=== PATIENT | female | born 1950 | race Caucasian/White ===

== ENCOUNTER 2019-11-02 02:10 | Inpatient (IN) ==
--- NOTE | 2019-10-27 10:28 | EKG Report ---
Test Performed on : 10/27/2019 10:25:28 AM Test Reason : PAT Blood Pressure : / mmHG Vent. Rate : 066 BPM Atrial Rate : 066 BPM P-R Int : 154 ms QRS Dur : 086 ms QT Int : 424 ms P-R-T Axes : 026 070 054 degrees QTc Int : 444 ms Normal sinus rhythm. Possible Inferior infarct , age undetermined Abnormal ECG No previous ECGs available Confirmed by Kilo MONCADA, Asa Gan ([id number]) on 10/31/2019 9:25:20 AM
[2019-10-27 10:40] LABS: BASO# 0.02 X1000 (0.0-0.2); BASO% 0.3 % (0.0-0.8); EOS# 0.17 X1000 (0.0-0.7); EOS% 2.9 % (0.0-10.0); HEMATOCRIT 42.9 % (37.0-47.0); HEMOGLOBIN 14.2 g/dL (12.0-16.0); IMM GRAN# 0.02 X1000 (0.0-0.04); IMM GRAN% 0.3 % (0.0-0.5); LYMPH# 1.53 X1000 (1.2-3.4); LYMPH% 25.7 % (20.5-51.1); MCH 29.9 PG (27-31); MCHC 33.1 g/dL (33-37); MCV 90.3 FL (81-99); MONO# 0.63 X1000 (0.11-0.59); MONO% 10.6 % (1.7-9.3); MPV 10.7 FL (7.4-10.4); NEUT# 3.59 X1000 (1.4-6.5); NEUT% 60.2 % (42.2-75.2); PLT 229 X1000 (130-400); RBC 4.75 XMIL (4.2-5.4); RDW 13.5 % (11.5-14.5); WBC 5.96 X1000 (4.8-10.8)
[2019-11-02] MEDS ORDERED: ENTEREG ONE (07:26)
[2019-11-02] MEDS ORDERED: LR 1,000 ML ONE (07:26)
[2019-11-02] MEDS ORDERED: MEFOXIN 2 GM/D5W 2 GM/50 ML IVPB ONE (07:27)
[2019-11-02] MEDS ORDERED: QUELICIN (DOSE) ONE (07:40)
[2019-11-02] MEDS ORDERED: ZEMURON ONE ×2 (07:40→09:52)
[2019-11-02] MEDS ORDERED: MARCAINE 0.25% ONE (07:41)
[2019-11-02] MEDS ORDERED: DIPRIVAN 1% ONE (07:41)
[2019-11-02] MEDS ORDERED: EXPAREL 1.3% ONE (07:41)
[2019-11-02] MEDS ORDERED: XYLOCAINE-MPF 2% ONE (07:41)
[2019-11-02] MEDS ORDERED: FENTANYL ONE (07:47)
[2019-11-02] MEDS ORDERED: ZOFRAN ONE (09:15)
[2019-11-02] MEDS ORDERED: DECADRON ONE (09:52)
[2019-11-02] MEDS ORDERED: OFIRMEV 1000 MG/ISOTONIC SOLN 1,000 MG/100 ML BOTTLE ONE (09:54)
[2019-11-02] MEDS ORDERED: ROBINUL ONE (10:09)
[2019-11-02] MEDS ORDERED: EPHEDRINE ONE (10:10)
[2019-11-02] MEDS ORDERED: BRIDION ONE (10:21)
[2019-11-02 10:29] LABS: URINE SOURCE CATH
[2019-11-02 10:31] LABS: BILIRUBIN URINE NEGATIVE (NEGATIVE); BLOOD URINE TRACE (NEGATIVE); COLOR YELLOW; GLUCOSE URINE NEGATIVE (NEGATIVE); KETONE URINE NEGATIVE (NEGATIVE); LEUKOCYTES URINE NEGATIVE (NEGATIVE); NITRITE URINE NEGATIVE (NEGATIVE); PROTEIN URINE TRACE mg/dL (NEGATIVE); TURBIDITY URINE CLEAR (CLEAR); UR EPITHELIAL CELLS <10 /HPF (<10); URINE BACTERIA NEGATIVE /HPF; URINE RBC <10 /HPF (<10); URINE WBC <10 /HPF (<10); UROBILINOGEN URINE NORMAL (NORMAL)
[2019-11-02] MEDS ORDERED: TORADOL ONE (11:07)
[2019-11-02] MEDS: DILAUDID ONE ×4 (11:50→12:11)
[2019-11-02] MEDS ORDERED: D5 1/2 NS + KCL 20 MEQ 1,000 ML ONE (11:51)
[2019-11-02] MEDS ORDERED: ZOFRAN IV PRN ×2 (12:56→14:03)
[2019-11-02] MEDS ORDERED: MEFOXIN 2 GM/NS 2 GM/50 ML IVPB IV SCH (14:00)
[2019-11-02] MEDS: D5 1/2 NS + KCL 20 MEQ 1,000 ML IV SCH (14:52)
[2019-11-02] MEDS: MEFOXIN 2 GM/D5W 2 GM/50 ML IVPB IV SCH ×2 (14:52→20:34)
[2019-11-02] MEDS: PROZAC PO SCH (15:51)
[2019-11-02] MEDS: OFIRMEV 1000 MG/ISOTONIC SOLN 1,000 MG/100 ML BOTTLE IV SCH ×2 (15:51→21:45)
--- NOTE | 2019-11-02 17:58 | OPERATIVE NOTE ---
PROCEDURE DATE: 11/02/2019 PREOPERATIVE DIAGNOSIS: Carcinoid tumor of the terminal ileum. POSTOPERATIVE DIAGNOSIS: Carcinoid tumor of the terminal ileum. PROCEDURE: Open right hemicolectomy with stapled [id number]-zy-dbla anastomosis. SURGEON: Dilshad Ta MD. CERAMIST: Dr. Ramon. Dr. Ramon assisted with the entirety of the case. His presence was crucial to completion of the case. ANESTHESIA: General endotracheal. FINDINGS: Lesion was palpable at the ileocecal valve. COMPLICATIONS: None at time of dictation. ESTIMATED BLOOD LOSS: 50 mL. SPECIMENS: Right colon. BRIEF HISTORY: A 69-year-old female with biopsy-proven carcinoid tumor. It was felt she needed a resection. She had an octreotide scan that showed no other lesions, it was felt she would benefit from resection. The risks, benefits, and alternatives were discussed. All questions were answered. Risks including, but not limited to bleeding, infection, risk of anesthesia, risk of anastomotic leak, risk of injuring other organs discussed. She voiced understanding. DESCRIPTION OF PROCEDURE: After informed consent was obtained, the patient brought to the operative theatre, transferred to the operating table. She was placed in the supine position. General endotracheal anesthesia was then performed without complication. Anesthesia then performed in a transabdominal plane block without complication. We then prepped and draped the abdomen in sterile fashion. After the time-out, we turned our attention to the abdomen. We made a standard midline incision through which we entered into the abdomen. Upon doing this, we were able to evaluate the right colon. I felt the lesion in the ileocecal valve and was able to mobilize the right colon, mobilize it along the white line of Toldt all the way up past the hepatic flexure. We made a window in the base of the mesentery of the terminal ileum 7 cm in vivo away from the ileocecal valve. I transected the terminal ileum there. We then found a spot in the transverse colon proximal to the middle colic artery, which we made a window and transected the colon there. We then took down the mesentery with the LigaSure. We then did a stapled side- to-side functional end-to-end anastomosis and over-sewed the common channel in 2 layers. We then closed the mesenteric defect. We then irrigated out the abdomen until the suction fluid was clear. We then closed the abdomen with a running loop PDS started on either side and closed the skin with pedro. The patient tolerated the procedure well, and was transferred back to recovery room. cc: Dilshad Ta MD
[2019-11-02] MEDS: HEPARIN SUBQ SCH (18:06)
[2019-11-02] MEDS: ULTRAM PO PRN (20:31)
[2019-11-02] MEDS: PERIDEX MT SCH (22:50)
[2019-11-03] MEDS: MORPHINE IV PRN ×5 (00:14→20:07)
[2019-11-03] MEDS: HEPARIN SUBQ SCH ×3 (03:11→18:41)
[2019-11-03] MEDS: ULTRAM PO PRN (03:11)
[2019-11-03] MEDS: MEFOXIN 2 GM/D5W 2 GM/50 ML IVPB IV SCH ×2 (03:11→10:39)
[2019-11-03] MEDS: OFIRMEV 1000 MG/ISOTONIC SOLN 1,000 MG/100 ML BOTTLE IV SCH ×2 (03:58→12:04)
[2019-11-03] MEDS: D5 1/2 NS + KCL 20 MEQ 1,000 ML IV SCH (03:58)
[2019-11-03] MEDS ORDERED: PROZAC PO SCH (09:00)
[2019-11-03] MEDS: VITAMIN B-12 SL SCH (10:41)
[2019-11-03] MEDS: BIOTIN PO SCH (10:41)
[2019-11-03] MEDS: LIPITOR PO SCH (10:42)
[2019-11-03] MEDS: NORVASC PO SCH (10:42)
[2019-11-03] MEDS: ENTEREG PO SCH ×2 (10:42→20:07)
[2019-11-03] MEDS: PERIDEX MT SCH ×2 (10:42→20:07)
--- NOTE | 2019-11-03 11:09 | GENERAL SURGERY PROGRESS NOTE ---
DATE: 11/03/2019 SUBJECTIVE: Patient having some issues with pain. She was started on morphine last night. We have switched her off her tramadol, and switched her to [place]. Otherwise, she is not nauseated. OBJECTIVE: Vital Signs: The patient is currently afebrile. Her vital signs are stable. General: No acute distress. Cardiovascular: Regular rate and rhythm. Lungs: Grossly clear. Abdomen: Soft, appropriately tender. Incision with dressing intact. ASSESSMENT AND PLAN: A 69-year-old female, status post open right hemicolectomy for carcinoid tumor. Postoperative state. At this time, the patient is currently postoperative day #1. Will remove her Jauregui catheter. Will stop her antibiotics today. Will start her on heparin today. Will transition her over to [place]. Will keep her on Entereg, and will advance her diet as tolerated. cc: Dilshad Ta MD
[2019-11-03] MEDS: NORCO-5 PO PRN (12:07)
[2019-11-03] MEDS ORDERED: TYLENOL PO PRN (13:00)
[2019-11-04] MEDS: MORPHINE IV PRN ×3 (02:33→21:47)
[2019-11-04] MEDS: HEPARIN SUBQ SCH ×3 (02:33→17:33)
[2019-11-04] MEDS: D5 1/2 NS + KCL 20 MEQ 1,000 ML IV SCH ×5 (02:34→21:41)
[2019-11-04] MEDS: ENTEREG PO SCH ×2 (08:54→21:38)
[2019-11-04] MEDS: VITAMIN B-12 SL SCH (08:54)
[2019-11-04] MEDS: NORVASC PO SCH (08:55)
[2019-11-04] MEDS: LIPITOR PO SCH (08:55)
[2019-11-04] MEDS: PROZAC PO SCH (08:56)
[2019-11-04] MEDS: PERIDEX MT SCH ×2 (08:56→21:38)
[2019-11-04] MEDS: NORCO-5 PO PRN ×2 (11:53→17:33)
--- NOTE | 2019-11-04 12:44 | GENERAL SURGERY PROGRESS NOTE ---
DATE: 11/04/2019 SUBJECTIVE: The patient seems to be doing okay. She tolerated her diet. She has not really passed gas. She has not had a bowel movement. OBJECTIVE: Vital Signs: Patient is currently afebrile. Her vital signs stable. General: No acute distress. Cardiovascular: Regular rate and rhythm. Lungs: Grossly clear. Abdomen: Soft, appropriately tender. Hypoactive bowel sounds. Incision with dressing in place. ASSESSMENT AND PLAN: A 69-year-old female postoperative day number 2 from open right hemicolectomy. Postoperative state: At this time, we will await return of bowel function. We will continue to encourage mobilization. We will keep her on heparin. She is off her antibiotics. Her Jauregui has been removed. We will continue to see how she does. cc: Dilshad Ta MD
[2019-11-04] MEDS: BIOTIN PO SCH (16:49)
[2019-11-05] MEDS: D5 1/2 NS + KCL 20 MEQ 1,000 ML IV SCH ×2 (02:14→22:05)
[2019-11-05] MEDS: HEPARIN SUBQ SCH ×3 (02:14→18:29)
[2019-11-05] MEDS: BIOTIN PO SCH (09:00)
[2019-11-05] MEDS: NORCO-5 PO PRN ×2 (09:23→18:29)
[2019-11-05] MEDS: PERIDEX MT SCH ×2 (09:24→22:06)
[2019-11-05] MEDS: VITAMIN B-12 SL SCH (09:24)
[2019-11-05] MEDS: NORVASC PO SCH (09:24)
[2019-11-05] MEDS: ENTEREG PO SCH ×2 (09:24→22:05)
[2019-11-05] MEDS: LIPITOR PO SCH (09:24)
--- NOTE | 2019-11-05 13:26 | GENERAL SURGERY PROGRESS NOTE ---
DATE: 11/05/2019 SUBJECTIVE: Patient seems to be doing okay. She had some gas pain but she was able to pass gas. She is up and moving. OBJECTIVE: Vital Signs: Patient is currently afebrile. Her vital signs are stable. General: No acute distress. Cardiovascular: Regular rate and rhythm. Lungs: Grossly clear. Abdomen: Soft, appropriately tender. Incision with a little bit of drainage. ASSESSMENT AND PLAN: A 69-year-old female postoperative day #3 from open right hemicolectomy. Postoperative state. At this time, we will continue current treatment. Would like to see more definitive return of bowel function. I think her abdominal pain was more related to gas pain but we will continue to monitor. cc: Dilshad Ta MD
[2019-11-06] MEDS: HEPARIN SUBQ SCH ×2 (02:12→10:28)
--- NOTE | 2019-11-06 08:53 | GENERAL SURGERY PROGRESS NOTE ---
DATE: 11/06/2019 SUBJECTIVE: The patient seems to be doing okay. She has passed gas. She is tolerating p.o. She is up and ambulating. OBJECTIVE: Vital Signs: The patient is currently afebrile. Her vital signs are stable. General: No acute distress. Cardiovascular: Regular rate and rhythm. Lungs: Grossly clear. Abdomen: Soft, appropriately tender. Bowel sounds auscultated. ASSESSMENT AND PLAN: A 69-year-old female, currently postoperative day #4 from open right hemicolectomy. Postoperative state. At this time, will continue current treatment. If she is doing okay later today, may consider discharge home. cc: Dilshad Ta MD
[2019-11-06] MEDS: NORVASC PO SCH (10:27)
[2019-11-06] MEDS: VITAMIN B-12 SL SCH (10:27)
[2019-11-06] MEDS: PERIDEX MT SCH (10:27)
[2019-11-06] MEDS: ENTEREG PO SCH (10:27)
[2019-11-06] MEDS: PROZAC PO SCH (10:27)
[2019-11-06] MEDS: LIPITOR PO SCH (10:27)
[2019-11-06] MEDS: BIOTIN PO SCH (10:28)
[2019-11-06] MEDS: NORCO-5 PO PRN (10:39)
[2019-11-06 11:29] VITALS: BP 124/51
--- NOTE | 2019-11-08 11:52 | DISCHARGE SUMMARY ---
ADMISSION DATE: 11/02/2019 DISCHARGE DATE: 11/06/2019 ADMITTING DIAGNOSIS: Carcinoid tumor of the terminal ileum. DISCHARGE DIAGNOSIS: Status post open right hemicolectomy. ADMITTING PHYSICIAN: Dr. Dilshad Ta. CONSULTATIONS: None. PROCEDURE: On 11/02/2019, patient underwent open right hemicolectomy. BRIEF HISTORY AND COURSE OF STAY: Patient is a 69-year-old female, found to have a carcinoid tumor on colonoscopy. It was felt that she would benefit from resection. The risks, benefits, and alternatives were discussed. She was admitted, underwent previously-described procedure which she tolerated well. Her postoperative course was uneventful. On postoperative day #4, she was up and ambulating, tolerating p.o., passing gas, and wanted to go home. She had been hemodynamically stable and had not had any issues and her pain was well controlled. Therefore, it is felt that she would be safely discharged. All arrangements were made. DISPOSITION: Home. DISCHARGE CONDITION: Stable. FOLLOWUP INSTRUCTIONS: Patient told to follow up with Dr. Ta in 1 to 2 weeks. cc: Dilshad Ta MD
== END 2019-11-06 16:20 | disposition home or self-care (01) | DRG 331 ==
LOC: SURHOLD 02:10 → 4N 12:22
PROVIDERS: ADMIT Surgery; ATTEND Surgery